=== PATIENT | male | born 1980 | race Caucasian/White ===

== ENCOUNTER 2016-11-19 09:23 | Emergency (ER) | payer OTHER ==
[2016-11-19 09:37] VITALS: TEMP 98
[2016-11-19] MEDS ORDERED: NS 1,000 ML IV ONE ×2 (09:39→10:23)
[2016-11-19] MEDS ORDERED: ONDANSETRON 4 MG/2 ML VIAL IVP ONE (09:39)
[2016-11-19] MEDS ORDERED: ONDANSETRON 4 MG/2 ML VIAL ONE (09:39)
--- NOTE | 2016-11-19 09:40 | EDPHY ---
H & P Stated Complaint: c/o N/D since last pm Time Seen by Provider: 11/19/16 09:32 HPI/ROS: Chief Complaint: Nausea, diarrhea HPI: 35-year-old male ate a sub sandwich at 10 o'clock last night. He woke at 4 o'clock this morning with nausea and started having multiple episodes of profuse nonbloody diarrhea. Patient states that he initially for stool analysis watery. She has had persistent abdominal cramping. Some nausea but has not vomited. No fevers or chills. No recent travel. No chest pain or shortness of breath. ROS: 10 point Review of Systems is negative except as noted in the HPI. PMH: None Social History: No smoking, occasional alcohol, no recreational drug use Family History: non-contributory Physical Exam: Gen: Awake, Alert, No Distress HEENT: Nose: no rhinorrhea Eyes: PERRLA, EOMI Mouth: Moist mucosa Neck: Supple, no JVD Chest: nontender, lungs clear to auscultation Heart: S1, S2 normal, no murmur Abd: Soft, non-tender, no guarding Back: no CVA tenderness, no midline tenderness Ext: no edema, non-tender Skin: no rash Neuro: CN II-XII intact, Sensation grossly intact, Strength 5/5 in bilateral upper and lower extremities - Personal History Current Tetanus Diphtheria and Acellular Pertussis (TDAP): Yes - Medical/Surgical History Hx Asthma: No Hx Chronic Respiratory Disease: No Hx Diabetes: No Hx Cardiac Disease: No Hx Renal Disease: No Hx Cirrhosis: No Hx Alcoholism: No Hx HIV/AIDS: No Hx Splenectomy or Spleen Trauma: No Other PMH: denies - Social History Smoking Status: Never smoked Constitutional: Initial Vital Signs Temperature (C) 36.6 C 11/19/16 09:36 Heart Rate 75 11/19/16 09:36 Respiratory Rate 18 11/19/16 09:36 Blood Pressure 124/62 H 11/19/16 09:36 O2 Sat (%) 97 11/19/16 09:36 O2 Delivery Mode Room Air Allergies/Adverse Reactions: No Known Allergies Allergy (Verified 05/11/14 19:43) Home Medications: Medication Instructions Recorded NO HOME MEDS 12/07/09 Medical Decision Making ED Course/Re-evaluation: Patient is feeling somewhat improved after 800 mL of fluid and IV Zofran. Will start to p. o. challenge. Will order a 2nd L of intravenous fluid. - Data Points Medications Given: Discontinued Medications Hyoscyamine Sulfate (Levsin, Hyomax-Sl) 0.125 mg PO EDNOW ONE Stop: 11/19/16 11:11 Last Admin: 11/19/16 11:21 Dose: 0.125 mg Sodium Chloride (Ns) 1,000 mls @ 0 mls/hr IV ONCE ONE; Wide Open PRN Reason: Protocol Stop: 11/19/16 09:40 Last Admin: 11/19/16 09:48 Dose: 1,000 mls Sodium Chloride (Ns) 1,000 mls @ 0 mls/hr IV ONCE ONE; Wide Open PRN Reason: Protocol Stop: 11/19/16 10:24 Last Admin: 11/19/16 11:00 Dose: 1,000 mls Ondansetron HCl (Zofran) 4 mg IVP EDNOW ONE Stop: 11/19/16 09:40 Last Admin: 11/19/16 09:48 Dose: 4 mg Departure - Departure Disposition: Home, Routine, Self-Care Clinical Impression: Food poisoning Condition: Good Instructions: Acute Nausea and Vomiting (ED), Acute Diarrhea (ED), Food Poisoning (ED), Ondansetron (By mouth) Additional Instructions: You may take ondansetron, 4 mg every 8 hours as needed for nausea and vomiting. Make sure to drink plenty of clear fluids, avoid caffeine, alcohol and very sugary drinks. Return to the emergency department for increasing pain, uncontrolled nausea or vomiting, fevers, chills, or any other concerns. Follow up with primary care physician in 3-4 days if symptoms have not resolved. Referrals: Eder Lara MD [[facility] Primary Care Provider] - As per Instructions
[2016-11-19] MEDS ORDERED: HYOSCYAMINE SULFATE 0.125 MG TAB PO ONE (11:10)
[2016-11-19] MEDS ORDERED: ONDANSETRON 4MG PREPACK#2 BTL TAKEHOME ONE (12:04)
[2016-11-19 12:58] VITALS: BP 110/68; PULSE 75; RESP 16; O2SAT 98
== END 2016-11-19 13:01 | disposition home or self-care (01) ==
LOC: CED 09:23
DX: T62.91XA Toxic effect of unspecified noxious substance eaten as food, accidental (unintentional), initial encounter (principal); E86.9 Volume depletion, unspecified
CPT/HCPCS: 96374; J2405